=== PATIENT | female | born 1975 | race Caucasian/White ===

== ENCOUNTER 2016-08-04 16:43 | Emergency (ER) | payer MEDICARE, OTHER ==
[2016-08-04] MEDS: HYOSCYAMINE SULFATE 0.125 MG TAB.SUBL SL ONE (18:04)
[2016-08-04] MEDS: METOCLOPRAMIDE HCL 5 MG TABLET PO ONE (18:04)
--- NOTE | 2016-08-04 19:05 | Diagnostic Imaging Report ---
DHEERAJ STEELE [facility] [address] [facility].[address] [address] Report Submission Date: August 04, 2016 6:10:40 PM CDT Patient Study Name: DELMY HUERTA Date: August 04, 2016 5:29:21 PM CDT Modality Type: CR Gender: F Description: ABDOMEN : 75 Institution: [facility] Physician: DHEERAJ STEEEL Single view chest and 3 views the abdomen Clinical history: Abdominal pain Findings: There is left lower lobe atelectasis and infiltrate with a questionable small left pleural effusion. This may reflect pneumonia. No pneumoperitoneum. No small bowel obstruction. Prior cholecystectomy noted. Impression: Left lower lobe atelectasis and/or infiltrate with possible small left pleural effusion. This could reflect pneumonia No small bowel obstruction or pneumoperitoneum Electronically signed on August 04, 2016 6:10:40 PM CDT by: Fer CERVANTES
[2016-08-04] MEDS: LACTULOSE 10 GM/15 ML UDC PO SCH (19:30)
[2016-08-04] MEDS: MAGNESIUM HYDROXIDE 400 MG/5 ML 30ML UDC PO ONE (19:30)
[2016-08-04] MEDS: HALOPERIDOL LACTATE 5 MG/ML VIAL IM ONE (19:30)
[2016-08-04] MEDS ORDERED: LACTULOSE 10 GM/15 ML UDC PO ONE (19:38)
[2016-08-04 20:42] VITALS: BP 122/72
--- NOTE | 2016-08-05 15:36 | ED Physician Documentation ---
Abdominal Pain - HISTORIAN Historian: patient - HPI Stated Complaint: Lower ABD pain Chief Complaint: Abdominal Pain Additonal Information: since 05/06/16 Onset: days ago (60) Duration: waxing, waning Timing: still present Context: denies: out of country travel, bad food, recent trauma Severity: moderate Quality: aching Associated Symptoms: none Exacerbated by: nothing Relieved by: nothing Further Comments: no - ROS CONST: no problems GI/: denies: constipation, black stools, bloody urine, bloody stools, dark urine, problems urinating CVS/RESP: none EYES/ENT: none MS/SKIN/LYMPH: none NEURO/PSYCH: none - SOCIAL HX Smoking History: non-smoker Alcohol Use: none Drug Use: none - FAMILY HX Family History: no significant history - PAST HX Past History: gall stones, GERD Ischemic Bowel Risk Factors: none Other History: none Surgeries/Procedures: cholecystectomy Immunizations: referred to PCP Home Medications: Ambulatory Orders Medication Instructions Recorded Diazepam [Diazepam] 10 mg PO 08/04/16 Esomeprazole Magnesium [Nexium 20 mg PO 08/04/16 24Hr] Gabapentin [Neurontin] 300 mg PO TID 08/04/16 Hydrochlorothiazide [Hydrodiuril] 25 mg PO DAILY 08/04/16 Linaclotide [Linzess] 08/04/16 Norgestimate-Ethinyl Estradiol 1 each PO 08/04/16 [[place]] Oxycodone HCl [Roxicodone] 20 mg PO TID 08/04/16 Allergies/Adverse Reactions: Allergies Allergy/AdvReac Type Severity Reaction Status Date / Time latex Allergy Verified 08/04/16 17:03 sulfamethoxazole Allergy Verified 08/04/16 17:02 [From Bactrim] trimethoprim [From Bactrim] Allergy Verified 08/04/16 17:02 aspertame Allergy Uncoded 08/04/16 17:02 - VITAL SIGNS Vital Signs: Vital Signs Temp Pulse Resp BP Pulse Ox 98.4 F 76 16 122/72 97 08/04/16 19:45 08/04/16 19:45 08/04/16 19:45 08/04/16 19:45 08/04/16 19:45 - REVIEWED ASSESSMENTS Nursing Assessment Reviewed: Yes Vitals Reviewed: Yes Progress - Results/Orders Results/Orders: aas ordered - Progress Progress: pt. given haldol, hyoscyamine, mom and reglan in er with improvement Critical Care Note - Critical Care Note Total Time (mins): 0 ED Results Lab/Radiology - Lab Results Lab Results: none ordered - Radiology Radiology Impressions: aas shows constipation - Orders Orders: ED Orders Category Date Time Status AAS [ABD SERIES PA CHEST] [RAD] Stat Exams 08/04/16 Completed Haloperidol Lactate [Haldol] Med 08/04/16 19:19 Discontinued 5 mg IM NOW ONE Hyoscyamine Sulfate [Oscimin Sl] Med 08/04/16 17:15 Discontinued 0.25 mg SL 1T ONE Lactulose [Enulose] Med 08/04/16 19:38 Discontinued 10 gm PO .STK-MED ONE Lactulose [Enulose] Med 08/05/16 11:00 Discontinued 10 gm PO 1100 Magnesium Hydroxide [Milk of Magnesia] Med 08/04/16 19:19 Discontinued 2,400 mg PO NOW ONE Metoclopramide HCl [Reglan] Med 08/04/16 17:14 Discontinued 5 mg PO NOW ONE Abdominal Pain Physical Exam - Physical Exam General Appearance: no acute distress, alert EENT: eye inspection normal, ENT inspection normal, pharynx normal, no signs of dehydration, IGNACIO, no nystagmus, TM's nml NECK: normal inspection, thyroid normal, supple RESPIRATORY: no resp distress, chest non-tender, breath sounds normal CVS: reg rate & rhythm, heart sounds normal, equal pulses, no murmur ABDOMEN: soft, no organomegaly, normal bowel sounds, tenderness (minor, generalized) BACK: normal inspection, no CVA tenderness EXTREMITIES: non-tender, normal range of motion, no evidence of injury, no edema NEURO: oriented X3, CN's nml as tested, motor nml, sensation nml, mood/affect nml Vital Signs: Vital Signs Temp Pulse Resp BP Pulse Ox 98.4 F 76 16 122/72 97 08/04/16 19:45 08/04/16 19:45 08/04/16 19:45 08/04/16 19:45 08/04/16 19:45 Discharge Clincal Impression: Constipation Qualifiers: Constipation type: slow transit constipation Qualified Code(s): K59.01 - Slow transit constipation Referrals: José Miguel Lainez [Primary Care Provider] - 2 Days Home Medications: Ambulatory Orders Diazepam [Diazepam] 10 mg PO 08/04/16 Esomeprazole Magnesium [Nexium 24Hr] 20 mg PO 08/04/16 Gabapentin [Neurontin] 300 mg PO TID 08/04/16 Hydrochlorothiazide [Hydrodiuril] 25 mg PO DAILY 08/04/16 Linaclotide [Linzess] 08/04/16 Norgestimate-Ethinyl Estradiol [[place]] 1 each PO 08/04/16 Oxycodone HCl [Roxicodone] 20 mg PO TID 08/04/16 Comments: discharged home with medications Condition: Stable Disposition: HOME, SELF-CARE Decision to Admit: NO Decision Time: 19:40
== END 2016-08-04 19:45 | disposition home or self-care (01) ==
LOC: ED 16:43
DX: K59.01 Slow transit constipation (principal)
CPT/HCPCS: 74022; A9270; J1630; 96372; 99283

== ENCOUNTER 2016-08-10 13:41 | Emergency (ER) | payer MEDICARE, OTHER ==
--- NOTE | 2016-08-10 13:53 | ED Physician Documentation ---
General Adult - HISTORIAN Historian: patient - HPI Stated Complaint: abd pain Chief Complaint: General Adult Onset: days ago Timing: still present Severity: moderate Further Comments: yes (Pt is a 41 yo female who was seen here 5 days ago for abd pain. Pt returns with similar sx. Pt states that it is speculated that she has endometriosis. Pt is to have work-up for this next week. Pt is having menses now and pain has increased. Pt states that she has crampy abd pain.) - ROS CONST: no problems EYES/ENT: none CVS/RESP: none GI/: abdominal pain. denies: vomiting, nausea, diarrhea MS/SKIN/LYMPH: none - PAST HX Past History: other (Bipolar d/o, schizo-affective d/o, PTSD, asthma, GERD, Hep C) Surgeries/Procedures: cholecystectomy Allergies/Adverse Reactions: Allergies Allergy/AdvReac Type Severity Reaction Status Date / Time latex Allergy Verified 08/10/16 14:10 sulfamethoxazole Allergy Verified 08/10/16 14:10 [From Bactrim] trimethoprim [From Bactrim] Allergy Verified 08/10/16 14:10 aspertame Allergy Uncoded 08/10/16 14:10 Home Medications: Ambulatory Orders Medication Instructions Recorded Diazepam [Diazepam] 10 mg PO DIRECTED 08/04/16 Esomeprazole Magnesium [Nexium 20 mg PO D 08/04/16 24Hr] Gabapentin [Neurontin] 300 mg PO TID 08/04/16 Hydrochlorothiazide [Hydrodiuril] 25 mg PO DAILY 08/04/16 Linaclotide [Linzess] 290 mcg PO D 08/04/16 Norgestimate-Ethinyl Estradiol 1 each PO D 08/04/16 [[place]] Oxycodone HCl [Roxicodone] 20 mg PO TID 08/04/16 - SOCIAL HX Smoking History: quit greater than 1 year - FAMILY HX Family History: No - VITAL SIGNS Vital Signs: Vital Signs Temp Pulse Resp BP Pulse Ox 122/72 08/04/16 19:45 - REVIEWED ASSESSMENTS Nursing Assessment Reviewed: Yes Vitals Reviewed: Yes Progress - Progress Progress: Toradol 60 mg IM sx resloved Rx Ketorolac 10 mg. Take one every 6 hours as needed for pain. Do not use for longer than 5 days. General Adult Physical Exam - PHYSICAL EXAM GENERAL APPEARANCE: moderate distress EENT: pharynx normal NECK: normal inspection, supple RESPIRATORY: no resp distress, chest non-tender, breath sounds normal CVS: reg rate & rhythm, heart sounds normal ABDOMEN: soft, normal bowel sounds, tenderness (mid abd) BACK: normal inspection, no CVA tenderness SKIN: warm/dry, normal color EXTREMITIES: non-tender, normal range of motion, no evidence of injury NEURO: oriented X3, motor nml, sensation nml Discharge Clincal Impression: possible endometriosis Abdominal pain Qualifiers: Abdominal location: unspecified location Qualified Code(s): R10.9 - Unspecified abdominal pain Referrals: José Miguel Lainez [Primary Care Provider] - Home Medications: Ambulatory Orders Diazepam [Diazepam] 10 mg PO DIRECTED 08/04/16 Esomeprazole Magnesium [Nexium 24Hr] 20 mg PO D 08/04/16 Gabapentin [Neurontin] 300 mg PO TID 08/04/16 Hydrochlorothiazide [Hydrodiuril] 25 mg PO DAILY 08/04/16 Linaclotide [Linzess] 290 mcg PO D 08/04/16 Norgestimate-Ethinyl Estradiol [[place]] 1 each PO D 08/04/16 Oxycodone HCl [Roxicodone] 20 mg PO TID 08/04/16 Condition: Good Disposition: 01 HOME, SELF-CARE Decision to Admit: NO Decision Time: 15:14
[2016-08-10] MEDS ORDERED: KETOROLAC TROMETHAMINE 60 MG/2 ML VIAL IM ONE (14:04)
[2016-08-10 15:15] VITALS: BP 128/90
[2016-08-10 17:38] LABS: APPEARANCE,URINE CLEAR (CLEAR); COLOR,URINE YELLOW (YELLOW); OCCULT BLOOD,URINE NEGATIVE (NEGATIVE); PH URINE 5.5 (5.0 - 8.0); URINE HCG NEGATIVE (NEGATIVE); UROBILINOGEN URINE 0.2 Eu (0.2-1.0)
== END 2016-08-10 15:10 | disposition home or self-care (01) ==
LOC: ED 13:41
DX: R10.9 Unspecified abdominal pain (principal)
CPT/HCPCS: 81002; 81025; J1885; 96372; 99283

== ENCOUNTER 2016-09-05 18:21 | Emergency (ER) | payer MEDICARE, OTHER ==
--- NOTE | 2016-09-05 18:47 | ED Physician Documentation ---
General Adult - HISTORIAN Historian: patient - HPI Chief Complaint: General Adult Further Comments: yes (41 year old female patient presents with complaints of menstral cramps. Stated to nursing she had not taken any OTC medications prior to coming to ER. States pain started at 1600 today. Cannot clearly states if her menses has started. Reported to this provider that she took 800mg of ibuprofen at 1600.) - ROS CONST: other (dental procedure today - tooth pulled) EYES/ENT: none CVS/RESP: none GI/: none MS/SKIN/LYMPH: none NEURO/PSYCH: denies: headache, dizziness, tingling, numbness, difficulty walking , difficulty with speech - PAST HX Past History: other (GERD) Allergies/Adverse Reactions: Allergies Allergy/AdvReac Type Severity Reaction Status Date / Time latex Allergy Verified 09/05/16 19:10 sulfamethoxazole Allergy Verified 09/05/16 19:10 [From Bactrim] trimethoprim [From Bactrim] Allergy Verified 09/05/16 19:10 aspertame Allergy Uncoded 08/10/16 14:10 Home Medications: Ambulatory Orders Medication Instructions Recorded Diazepam [Diazepam] 10 mg PO DIRECTED 08/04/16 Esomeprazole Magnesium [Nexium 20 mg PO D 08/04/16 24Hr] Gabapentin [Neurontin] 300 mg PO TID 08/04/16 Hydrochlorothiazide [Hydrodiuril] 25 mg PO DAILY 08/04/16 Linaclotide [Linzess] 290 mcg PO D 08/04/16 Norgestimate-Ethinyl Estradiol 1 each PO D 08/04/16 [[place]] Oxycodone HCl [Roxicodone] 20 mg PO TID 08/04/16 - SOCIAL HX Smoking History: non-smoker - FAMILY HX Family History: No - VITAL SIGNS Vital Signs: Vital Signs Temp Pulse Resp BP Pulse Ox 128/90 08/10/16 15:10 - REVIEWED ASSESSMENTS Nursing Assessment Reviewed: Yes Vitals Reviewed: Yes Progress - Progress Progress: Extensive education on over the counter treatment plan for menstrual cramps. Patient reporting conflicting ibuprofen information. Will not give additional NSAID in ER. Patient requesting toradol IM. Instructed to use OTC first line medication after discharge. Instructed patient to use Ibuprofen, tylenol or midol per package instructions. Patient has Oxycodone as home medication. Reviewed 2 previous ER visits for menstrual pain complaints. Extensive education on proper use of ER. General Adult Physical Exam - PHYSICAL EXAM GENERAL APPEARANCE: [id number] N EENT: eye inspection normal, IGNACIO CVS: reg rate & rhythm, heart sounds normal, equal pulses, no murmur, no gallop , PMI nml, no JVD, no friction rub, 24 ABDOMEN: soft, no organomegaly, normal bowel sounds, no abdominal bruit, no distension EXTREMITIES: non-tender, normal range of motion, no evidence of injury, no edema , J, MED SPEC NEURO: oriented X3, CN's nml as tested, motor nml, sensation nml, mood/affect nml Discharge Clincal Impression: Menstrual cramps Referrals: José Miguel Lainez [Primary Care Provider] - 2 Days Additional Instructions: Tylenol 650-1000mg every 4 hours as needed for pain Ibuprofen 4 tabs every 6 hours as needed for pain, do not use longer than 5 days. Warm compress to abdomen as needed. OTC midol per package instructions. Home Medications: Ambulatory Orders Diazepam [Diazepam] 10 mg PO DIRECTED 08/04/16 Esomeprazole Magnesium [Nexium 24Hr] 20 mg PO D 08/04/16 Gabapentin [Neurontin] 300 mg PO TID 08/04/16 Hydrochlorothiazide [Hydrodiuril] 25 mg PO DAILY 08/04/16 Linaclotide [Linzess] 290 mcg PO D 08/04/16 Norgestimate-Ethinyl Estradiol [[place]] 1 each PO D 08/04/16 Oxycodone HCl [Roxicodone] 20 mg PO TID 08/04/16 Condition: Good Disposition: 01 HOME, SELF-CARE Decision to Admit: NO Decision Time: 18:45
[2016-09-05 19:00] VITALS: BP 115/67
== END 2016-09-05 18:55 | disposition home or self-care (01) ==
LOC: ED 18:21
DX: N94.6 Dysmenorrhea, unspecified (principal)
CPT/HCPCS: 99282; 99283

== ENCOUNTER 2017-09-13 10:40 | Outpatient (CLI) | payer MEDICARE, OTHER ==
[2017-09-13 12:04] LABS: EOSINOPHILS % 2.2 % (0.0-6.8)
[2017-09-13 12:16] LABS: eGFR (African) > 60; eGFR (Non-African) > 60
--- NOTE | 2017-09-15 14:32 | OP Clinic Progress Note ---
REASON FOR VISIT: This is a 42-year-old female is seen in conjunction, I believe, with her . Patient is rather loquacious. She has had a multiple of symptoms and problems. She has really been extremely sick since February of last year, making this about half a year of being sick. She has had 4 steroid shots and she has gained 50 pounds. She has headaches overlying the ethmoids area more than the maxillary sinus areas. She has pressure and discomfort in her ears. She does not blow much out of her nose. She has taken antibiotics, including azithromycin. Cipro seemed to help to some degree. She has photophobia and feels like she gets migraines but describes these as being behind both eyes. She has fevers and sweats. She states she has a variety of different psychiatric diagnoses including schizoaffective disorder, anxiety, depression, and other issues. She has been in [place] and had her medications adjusted. I am not sure of the specifics. The patient is sweating today. Her ear canals are clear. Both eardrums are clear but they are both retracted and have some degree of retraction. The nasal septum is slightly right-sided deviated. There is diffuse inflammatory changes bilaterally but I do not see polyps, scabs, crusts, or perforations or any gross purulence. The tonsils are 2 to 3+ in size. There is somewhat of a thick tongue base. A flexible fiberoptic laryngoscope notes bilateral vocal cords rather diffuse, leukoplakia, there is a slight ulceration I believe more the left vocal cord. There is no evident mass or tumor. Again, the patient does not smoke but her smokes and has some secondary smoke effect. The larynx itself appears to be more inflammatory and not grossly evidently malignant. Patient states her left-sided ribs hurt in the lower portion of the rib cage secondary to her coughing and she has cough micturition in addition. The vocal cord issue is not evidently malignant. How much reflux may play in this or how much a micro-organism being infectious could play in this, it is difficult to tell. A culture was taken of the throat as a deep throat culture which the patient was able to tolerate well. PLAN: I will get some additional information with a CAT scan of the sinuses. A video swallow. Repeat chemistry profile, CBC, and immunoglobulins. I will see the patient back in 1 or 2 weeks depending upon the timing of her studies. The patient did have an audiogram with Nestor Baez representing a mild to moderate hearing loss, very slightly high frequency sloping. It does not affect her communication. I see no gross middle ear disease other than being somewhat stiff or tightened and retracted eardrums. I will see the patient back in 2 weeks and review these studies. HELEN
[2017-09-16 09:36] LABS: BASOPHILS % 0.6 (0.0-1.5); MEAN CORPUSCULAR HEMOGLOBIN 33.4 pg (28.0-34.0); MEAN CORPUSCULAR VOLUME 104.8 fl (80.0-100.0); NEUTROPHILS # 6.7 # k/uL (1.4-7.7)
== END 2017-09-13 10:42 ==
LOC: ENT 10:40
PROVIDERS: ATTEND Otolaryngology
DX: J38.3 Other diseases of vocal cords (principal); Z77.22 Contact with and (suspected) exposure to environmental tobacco smoke (acute) (chronic)
CPT/HCPCS: 31575; 36415; 80053; 82784; 82785; 85025; 87070; G0463

== ENCOUNTER 2017-09-18 12:55 | Outpatient (CLI) | payer MEDICARE, OTHER ==
--- NOTE | 2017-09-18 14:31 | Diagnostic Imaging Report ---
KANDIS CHAVARRIA [facility] [address] [facility] [address] [place], [place]. [address] Report Submission Date: Sep 18, 2017 2:21:22 PM CDT Patient Study Name: DELMY HUERTA Date: Sep 18, 2017 1:07:34 PM CDT Modality Type: CT\SR Gender: F Description: CT MAXILLOFACIAL W/O D : 75 Institution: [facility] Physician: KANDIS CHAVARRIA Examination: CT maxillofacial History: LARYNGITIS 2 TIMES IN 6 MONTHS. COUGH. (Hx) Comparison exams: None provided Technique: Axial imaging with sagittal and coronal reconstruction Findings: Medial and inferior orbital hankins are intact. Anterior and posterior maxillary hankins are also intact. Zygomatic arches without fracture. No nasal bone abnormality. Mandibles including the mandibular condyle are without irregularity. No air fluid levels within the sinuses. Mild mucous thickening. Streak artifact from dental hardware. Remaining visualized osseous structures and soft tissue structures are without irregularity. Impression: Mild sinus mucus thickening. No air-fluid levels. No gross soft tissue abnormalities. No orbital, nasal, mandibular or maxillary bone abnormalities. Electronically signed on Sep 18, 2017 2:21:22 PM CDT by: Michael CERVANTES
== END 2017-09-18 12:56 ==
LOC: RAD 12:55
PROVIDERS: ATTEND Otolaryngology
DX: J04.0 Acute laryngitis (principal)
CPT/HCPCS: 70486

== ENCOUNTER 2017-10-04 14:41 | Outpatient (CLI) | payer MEDICARE, OTHER ==
--- NOTE | 2017-10-05 10:10 | OP Clinic Progress Note ---
REASON FOR VISIT: This 42-year-old female has had some symptoms of rhinosinusitis and mild hoarseness with some mild thickening of the vocal cords. She was fairly sick and was septic clinically. She went to [place] where she was found to have an elevated white count and hyponatremia by history. She was treated for that and is currently taking azithromycin and another antibiotic concomitantly. She, overall, feels much better and her voice is much clearer. With a fiberoptic rhinoscope, I do not see an evident mass or lesions. It is much clearer. Given all things considered, the patient feels much better. I reviewed the CT with her. Although there is a little thickening, more in the right maxillary sinus, it is not severe. The nose looks fairly clear with fiberoptic exam. Also, the culture recently had simply scant normal yamilet. PLAN: The patient simply clinically feels much better and I do not see a need to actively treat her. She and the male with whom she is with today are both happy to just see how she does, and I have not given them no specific follow up , although they are welcome at any time. cc: Dr. José Miguel CERVANTES
== END 2017-10-04 14:45 ==
LOC: ENT 14:41
PROVIDERS: ATTEND Otolaryngology
DX: J01.80 Other acute sinusitis (principal); R49.0 Dysphonia
CPT/HCPCS: 31575; G0463